=== PATIENT | female | born 1945 ===

== ENCOUNTER 2023-01-13 11:15 | Outpatient (CLI) | payer OTHER | END 2023-01-13 11:21 | disposition home or self-care (01) | LOC: TOM 11:15 | DX: R16.0 Hepatomegaly, not elsewhere classified (principal) ==

== ENCOUNTER 2023-04-17 15:33 | Outpatient (CLI) | payer OTHER | END 2023-04-17 15:38 | disposition home or self-care (01) | LOC: MAMO-SONO 15:33 | PROVIDERS: ATTEND Obstetrics & Gynecology | DX: R92.2 Inconclusive mammogram (principal); Z12.31 Encounter for screening mammogram for malignant neoplasm of breast ==